=== PATIENT | female | born 1980 | race Caucasian/White ===

== ENCOUNTER 2021-01-25 16:19 | Emergency (ER) | payer OTHER ==
[~2021-01-25] VITALS: Ht 167.6 cm; Wt 58.5 kg
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
[2021-01-25 16:35] VITALS: BP 108/70
--- NOTE | 2021-01-25 16:42 | NUR ---
ENTRY LEVEL PROGRAMMER AT BEDSIDE
[2021-01-25] MEDS ORDERED: IBUPROFEN 600 MG TABLET ONE (16:51)
[2021-01-25] MEDS ORDERED: IBUPROFEN 600 MG TABLET PO ONE (17:00)
[2021-01-25] MEDS ORDERED: IBUP-1955 PO (17:27)
[2021-01-25] MEDS ORDERED: HYDR-4303 PO (17:29)
--- NOTE | 2021-01-25 17:34 | NUR ---
Patient discharged to home in stable condition. RX Written and verbal after care instructions given. Patient verbalizes understanding of instruction. PT ambulatory with a steady gait
== END 2021-01-25 17:38 | disposition home or self-care (01) ==
LOC: ER 16:24
DX: S27.329A Contusion of lung, unspecified, initial encounter (principal); S20.219A Contusion of unspecified front wall of thorax, initial encounter; W05.1XXA Fall from non-moving nonmotorized scooter, initial encounter; Y93.55 Activity, bike riding; Y92.89 Other specified places as the place of occurrence of the external cause; Y99.8 Other external cause status
CPT/HCPCS: 71045-TC

== ENCOUNTER 2022-02-24 14:55 | Emergency (ER) | payer OTHER ==
[~2022-02-24] VITALS: Ht 167.6 cm; Wt 55.3 kg
[~2022-02-24 14:55] MED LIST: HYDR-4303 PO; IBUP-1955 PO
--- NOTE | 2022-02-24 15:55 | NUR ---
BIBS C/O DRY COUGH, SHORTNESS OF BREATH. AMBULATORY, PLACED ON BED, UNLABORED BREATHING SATURATING AT 90%RA.
[2022-02-24] MEDS ORDERED: predniSONE 20 MG TABLET PO ONE (16:00)
[2022-02-24] MEDS ORDERED: IPRATROPIUM NEB FS 0.5 MG/2.5 ML AMPUL.NEB NEB ONE (16:00)
[2022-02-24] MEDS ORDERED: ALBUTEROL FS 2.5 MG/3 ML VIAL.NEB CONTNEB ONE (16:00)
--- NOTE | 2022-02-24 16:00 | NUR ---
TRANSMISSION WORKER AT BEDSIDE FOR XRAY
[2022-02-24] MEDS ORDERED: predniSONE 20 MG TABLET ONE (16:07)
--- NOTE | 2022-02-24 16:18 | NUR ---
SWAB FOR COVID19 AND RAPID INFLUENZA SENT TO LAB
[2022-02-24 16:23] LABS: BASOPHILS % (AUTO) 0.4 % (0.0-2.0); EOSINOPHILS % (AUTO) 2.4 % (0.0-6.0); HEMATOCRIT 39 % (33-45); LYMPHOCYTES # (AUTO) 2.1 K/uL (0.8-4.8); LYMPHOCYTES % (AUTO) 22.7 % (20.0-44.0); MEAN CORPUSCULAR HGB CONC 34 g/dl (31.0-36.0); MEAN CORPUSCULAR VOLUME 88 fL (82-100); MONOCYTES # (AUTO) 0.6 K/uL (0.1-1.30); MONOCYTES % (AUTO) 6.4 % (2.0-12.0); NEUTROPHILS # (AUTO) 6.2 K/uL (1.8-8.9); NEUTROPHILS % (AUTO) 68.1 % (43.0-81.0); PLATELET COUNT (AUTO) 298 K/uL (150-450); RED BLOOD CELL COUNT(AUTO) 4.39 MIL/uL (4.0-5.2); WHITE BLOOD COUNT (AUTO) 9.1 K/uL (4.3-11.0)
[2022-02-24] MEDS ORDERED: IPRATROPIUM NEB FS 0.5 MG/2.5 ML AMPUL.NEB ONE (16:24)
[2022-02-24] MEDS ORDERED: ALBUTEROL FS 2.5 MG/3 ML VIAL.NEB ONE (16:24)
[2022-02-24 16:29] LABS: CALCIUM, SERUM 8.8 mg/dL (8.5-10.1); CREATININE 0.8 mg/dL (0.6-1.3); POTASSIUM 3.8 mmol/L (3.5-5.1)
--- NOTE | 2022-02-24 17:01 | NUR ---
URINE SAMPLE SENT TO LAB
[2022-02-24] MEDS ORDERED: PRED50TA PO (18:02)
[2022-02-24] MEDS ORDERED: BENZ-13 PO (18:02)
--- NOTE | 2022-02-24 18:14 | NUR ---
Patient discharged to home in stable condition. Written and verbal after care instructions given. Patient verbalizes understanding of instruction.
[2022-02-24 18:16] VITALS: BP 130/68
== END 2022-02-24 18:16 | disposition home or self-care (01) ==
LOC: ER 14:57
DX: J06.9 Acute upper respiratory infection, unspecified (principal); B97.89 Other viral agents as the cause of diseases classified elsewhere; Z20.822 Contact with and (suspected) exposure to COVID-19
CPT/HCPCS: 99285; 71045; 87426; 87804; 85025; 80048; 84703; 36415; 94640; J7512; C9803